=== PATIENT | female | born 1955 | race Caucasian/White ===

== ENCOUNTER 2017-06-13 08:08 | Emergency (ER) | payer BC, OTHER ==
[~2017-06-13] VITALS: Ht 154.9 cm; Wt 52.0 kg
[~2017-06-13 08:08] MED LIST: Z.0.NO CURRENT MEDS
[2017-06-13 08:10] VITALS: BP 158/77; PULSE 84; RESP 16; TEMP 98.1; O2SAT 98
[2017-06-13] MEDS ORDERED: VITA100021 SL (08:31)
[2017-06-13] MEDS ORDERED: FISH1000 PO (08:31)
[2017-06-13] MEDS ORDERED: VITA1000 PO (08:31)
[2017-06-13] MEDS ORDERED: MELA5TAB15 PO (08:32)
--- NOTE | 2017-06-13 08:35 | PD ---
HPI Chief Complaint: Abdominal Pain Time Seen by Provider: 08:35 Travel History International Travel<30 days: No Contact w/Intl Traveler<30days: No Traveled to known affect area: No History of Present Illness HPI 62-year-old female came to the emergency room with history of left flank pain that started since last night. Patient says it woke her up from her sleep and since then she has been very nauseous and constant vomiting. Patient has had this pain on and off for past couple months but last night was the worst. She has also been diagnosed with some bladder cancer and had a cystoscopy and procedure done by Dr. De Dios 6 weeks ago. Patient says she had a CAT scan done just prior to the procedure and she was told there was no stone or any other abnormalities. Currently she is not vomiting. Vital signs are stable. She appears very uncomfortable. Her is here with her. PFSH Past Medical History Narrative Medical List of her past medical, surgical, social and family history was reviewed from the nursing note. Cancer: Yes (BLADDER) Diabetes: No Diminished Hearing: No Glaucoma: No Hepatitis: No Hiatal Hernia: No Hypertension: No Thyroid Disease: No Tetanus Vaccination: > 5 Years Influenza Vaccination: No ?: Not Menopausal: Yes : 2 Para: 2 Tubal Ligation: Yes Past Surgical History Abdominal Surgery: Yes (BLADDER CA) Section: Yes Gynecologic Surgery: Yes ( X 2; ABLATION) Pacemaker: No Other Surgery: Yes Social History Alcohol Use: Yes (SOCIALLY) Tobacco Use: No Substance Use: No Allergies-Medications (Allergen,Severity, Reaction): Coded Allergies: house dust (Unverified Allergy, Unknown, 06/14/17) mold (Unverified Allergy, Unknown, 06/14/17) Comments List of her allergies reviewed from the nursing note. Reported Meds & Prescriptions Reported Meds & Active Scripts Active Flomax (Tamsulosin HCl) 0.4 Mg Cap 0.4 Mg PO HS Zofran Odt (Ondansetron Odt) 4 Mg Tab 4 Mg SL Q6HR PRN Lortab (Hydrocodone-Acetaminophen) 5-325 Mg Tab 1 Tab PO Q6H PRN Reported Melatonin 5 Mg Tab 3 Mg PO HS Fish Oil ([place]-3 Fatty Acids) 1,000 Mg Cap 1 Cap PO DAILY Vitamin D-1000 (Cholecalciferol) 1,000 Unit Tab 1,000 Units PO DAILY Vitamin D-1000 (Cholecalciferol) 1,000 Unit Tab 1,000 Units PO DAILY Vitamin B-12 (Cyanocobalamin) 1,000 Mcg Subl 1,000 Mcg SL DAILY Narrative Medication List of her home medications reviewed from the nursing note. Review of Systems Except as stated in HPI: all other systems reviewed are Neg Physical Exam Narrative GENERAL: Awake, alert, moderate distress, anxious SKIN: Focused skin assessment warm/dry. HEAD: Atraumatic. Normocephalic. EYES: Pupils equal and round. No scleral icterus. No injection or drainage. ENT: No nasal bleeding or discharge. Mucous membranes pink and moist. NECK: Trachea midline. No JVD. CARDIOVASCULAR: Regular rate and rhythm. No murmur appreciated. RESPIRATORY: No accessory muscle use. Clear to auscultation. Breath sounds equal bilaterally. GASTROINTESTINAL: Abdomen soft, non-tender, nondistended. Hepatic and splenic margins not palpable. MUSCULOSKELETAL: No obvious deformities. No clubbing. No cyanosis. No edema. NEUROLOGICAL: Awake and alert. No obvious cranial nerve deficits. Motor grossly within normal limits. Normal speech. PSYCHIATRIC: Appropriate mood and affect; insight and judgment normal. Data Data Last Documented VS Vital Signs Date Time Temp Pulse Resp B/P Pulse Ox O2 Delivery O2 Flow Rate FiO2 06/13/17 09:30 18 06/13/17 09:26 99 Nasal Cannula 2 06/13/17 08:10 98.1 84 158/77 Orders Complete Blood Count With Diff (06/13/17 08:41) Comprehensive Metabolic Panel (06/13/17 08:41) Urinalysis - C+S If Indicated (06/13/17 08:41) Ct Abd/Pel W/O Iv Contrast (06/13/17 08:41) Iv Access Insert/Monitor (06/13/17 08:41) Ecg Monitoring (06/13/17 08:41) Oximetry (06/13/17 08:41) Hydromorphone Pf Inj (Dilaudid Pf Inj) (06/13/17 08:45) Ondansetron Inj (Zofran Inj) (06/13/17 08:45) Sodium Chlor 0.9% 1000 Ml Inj (Ns 1000 M (06/13/17 08:41) Sodium Chloride 0.9% Flush (Ns Flush) (06/13/17 08:45) Labs Laboratory Tests Test 06/13/17 06/13/17 09:03 09:55 White Blood Count 10.8 TH/MM3 Red Blood Count 4.65 MIL/MM3 Hemoglobin 14.0 GM/DL Hematocrit 42.0 % Mean Corpuscular Volume 90.3 FL Mean Corpuscular Hemoglobin 30.1 PG Mean Corpuscular Hemoglobin 33.3 % Concent Red Cell Distribution Width 13.1 % Platelet Count 268 TH/MM3 Mean Platelet Volume 8.0 FL Neutrophils (%) (Auto) 89.2 % Lymphocytes (%) (Auto) 6.5 % Monocytes (%) (Auto) 4.1 % Eosinophils (%) (Auto) 0.0 % Basophils (%) (Auto) 0.2 % Neutrophils # (Auto) 9.7 TH/MM3 Lymphocytes # (Auto) 0.7 TH/MM3 Monocytes # (Auto) 0.4 TH/MM3 Eosinophils # (Auto) 0.0 TH/MM3 Basophils # (Auto) 0.0 TH/MM3 CBC Comment DIFF FINAL Differential Comment Sodium Level 138 MEQ/L Potassium Level 3.8 MEQ/L Chloride Level 106 MEQ/L Carbon Dioxide Level 25.8 MEQ/L Anion Gap 6 MEQ/L Blood Urea Nitrogen 17 MG/DL Creatinine 1.00 MG/DL Estimat Glomerular Filtration 56 ML/MIN Rate Random Glucose 130 MG/DL Calcium Level 8.7 MG/DL Total Bilirubin 0.5 MG/DL Aspartate Amino Transf 21 U/L (AST/SGOT) Alanine Aminotransferase 28 U/L (ALT/SGPT) Alkaline Phosphatase 95 U/L Total Protein 8.0 GM/DL Albumin 4.1 GM/DL Urine Color LIGHT-YELLOW Urine Turbidity CLEAR Urine pH 7.5 Urine Specific [place] 1.009 Urine Protein NEG mg/dL Urine Glucose (UA) NEG mg/dL Urine Ketones 10 mg/dL Urine Occult Blood MOD Urine Nitrite NEG Urine Bilirubin NEG Urine Urobilinogen LESS THAN 2.0 MG/DL Urine Leukocyte Esterase NEG Urine RBC 11 /hpf Urine WBC LESS THAN 1 /hpf Microscopic Urinalysis Comment CULT NOT INDICATED MDM Medical Decision Making Medical Screen Exam Complete: Yes Emergency Medical Condition: Yes Medical Record Reviewed: Yes Differential Diagnosis Ureteral colic, ureteral calculi, pyelonephritis Narrative Course 11:17 AM blood test results of back and within acceptable limits. UA shows some rbc's but no infection. CT scan just a few of a 4 x 3 mm stone with mild hydronephrosis on the left side. Patient was given 1 mg of IV Dilaudid and she has been pain-free since then. I have put a call out for Dr. De Dios to discuss about the stone as well as the right hydronephrosis. However I have not heard back from him yet. At this point I'm comfortable discharging the patient home and I have asked her to call Dr. De Dios's office to make an appointment as soon as possible. She'll be discharged home with Lortab prescription and urine strainer. Patient is comfortable with that plan. Procedures EKG Prior to Arrival: No Diagnosis Primary Impression: Renal colic on left side Additional Impression: Hydroureter Referrals: Dylan De Dios MD 2 days Additional Instructions: Please follow-up with your urologist Dr. De Dios regarding this stone as well as the obstruction on the right side. Take the medications as per the prescription direction. Return to the ER if the condition worsens or any other new concerns. Not drive while on pain medication since they will make you groggy. Med/Other Pt SpecificInfo: Prescription(s) given Scripts Tamsulosin (Flomax)0.4 Mg Cap0.4 Mg PO HS #15 CAP Ref 0 Prov:Kenny Gavin MD 06/13/17 Ondansetron Odt (Zofran Odt)4 Mg Tab4 Mg SL Q6HR PRN (Nausea/Vomiting) #15 TAB Ref 0 Prov:Kenny Gavin MD 06/13/17 Hydrocodone-Acetaminophen (Lortab)5-325 Mg Tab1 Tab PO Q6H PRN (PAIN) #20 TAB Ref 0 Prov:Kenny Gavin MD 06/13/17 Disposition: DISCHARGE HOME Condition: Stable Kenny Gavin MD Jun 13, 2017 08:35
[2017-06-13] MEDS ORDERED: SODIUM CHLOR 0.9% 1000 ML INJ 1,000 ML IV SCH (08:41)
[2017-06-13] MEDS ORDERED: HYDROmorphone HCL PF 2 MG/ML VIAL IVS ONE (08:45)
[2017-06-13] MEDS ORDERED: SODIUM CHLORIDE 0.9% FLUSH 10 ML FLUSH IV FLUSH PRN (08:45)
[2017-06-13] MEDS ORDERED: ONDANSETRON HCL 4 MG/2 ML VIAL IVP ONE (08:45)
[2017-06-13 09:16] LABS: AUTOMATED NEUTROPHIL # 9.7 TH/MM3 (1.8-7.7); BASOPHIL % 0.2 % (0.0-2.0); HEMO FLAGS DIFF FINAL; LYMPH % 6.5 % (9.0-44.0); LYMPHOCYTE # 0.7 TH/MM3 (1.0-4.8); MEAN CELL VOLUME 90.3 FL (80.0-100.0); MEAN CORPUSCULAR HEMOGLOBIN 30.1 PG (27.0-34.0); MEAN CORPUSCULAR HGB CONC 33.3 % (32.0-36.0); MONO % 4.1 % (0.0-8.0); NEUT % 89.2 % (16.0-70.0); PLATELET COUNT 268 TH/MM3 (150-450); RED BLOOD COUNT 4.65 MIL/MM3 (4.00-5.30); RED CELL DISTRIBUTION WIDTH 13.1 % (11.6-17.2); WHITE BLOOD COUNT 10.8 TH/MM3 (4.0-11.0)
[2017-06-13 09:26] VITALS: RESP 18; O2SAT 99
[2017-06-13 09:30] VITALS: RESP 18
[2017-06-13 09:41] LABS: ANION GAP 6 MEQ/L (5-15); AST (GOT) 21 U/L (15-37); BICARBONATE 25.8 MEQ/L (21.0-32.0); BLOOD UREA NITROGEN 17 MG/DL (7-18); CHLORIDE 106 MEQ/L (98-107); GLOMERULAR FILTRATION RATE 56 ML/MIN (>89); POTASSIUM 3.8 MEQ/L (3.5-5.1); SODIUM (NA) 138 MEQ/L (136-145)
[2017-06-13 09:42] LABS: ALT (GPT) 28 U/L (10-53)
--- NOTE | 2017-06-13 09:42 | RADRPT ---
EXAM DATE/TIME: 06/13/2017 08:53 [facility] COMPARISON: No previous studies available for comparison. INDICATIONS : Right flank pain with nausea and vomiting. ORAL CONTRAST: No oral contrast ingested. RADIATION DOSE: 5.08 CTDIvol (mGy) MEDICAL HISTORY : Carcinoma, bladder. SURGICAL HISTORY : section. Tubal ligation.ablation, surgery for bladder cancer ENCOUNTER: Initial ACUITY: 1 day PAIN SCALE: 8/10 LOCATION: Right flank TECHNIQUE: Volumetric scanning of the abdomen and pelvis was performed. Using automated exposure control and ad justment of the mA and/or kV according to patient size, radiation dose was kept as low as reasonably achievable to obtain optimal diagnostic quality images. DICOM format image data is available electro nically for review and comparison. FINDINGS: LOWER LUNGS: The visualized lower lungs are clear. LIVER: Homogeneous density without lesion. There is no dilation of the biliary tree. No calcified gallston es. SPLEEN: Normal size without lesion. PANCREAS: Within normal limits. KIDNEYS: There is mild left hydronephrosis and distention of the extrarenal pelvis caused by a 4 x 3 mm stone in the left proximal ureter near the ureteropelvic junction. There is mild stranding of the adjacent perirenal fat. There is right hydronephrosis and hydroureter. A cause is not identified. There is a p unctate calcification in the right adnexal region (image 98) but it does not appear to correlate with the ureter. No mass is visualized. ADRENAL GLANDS: Within normal limits. VASCULAR: There is no aortic aneurysm. There is mild atherosclerotic disease. BOWEL/MESENTERY: The stomach, small bowel, and colon demonstrate no acute abnormality. There is no free intraperitone al air or fluid. There is sigmoid diverticulosis. Groundglass attenuation is present within the jejun al mesentery. A small hiatal hernia is present. ABDOMINAL WALL: Within normal limits. RETROPERITONEUM: There is no lymphadenopathy. BLADDER: No wall thickening or mass. REPRODUCTIVE: Within normal limits. INGUINAL: There is no lymphadenopathy or hernia. MUSCULOSKELETAL: There are mild degenerative changes of the lumbar spine. CONCLUSION: 1. There is mild left hydronephrosis caused by a 4 x 3 mm stone in the left proximal ureter at the ur eteropelvic junction. There is mild associated surrounding inflammation. 2. There is right hydronephrosis and proximal hydroureter from uncertain etiology. No right renal sto ne is seen. 3. Nonacute findings include small hiatal hernia and mild atherosclerotic disease. Jordan Miller MD on June 13, 2017 at 9:36 Board Certified Radiologist. This report was verified electronically.
[2017-06-13 09:45] LABS: ALKALINE PHOSPHATASE 95 U/L (45-117); TOTAL BILIRUBIN ADULT 0.5 MG/DL (0.2-1.0)
[2017-06-13 10:25] LABS: BLOOD, URINE MOD (NEG); GLUCOSE,URINE NEG (NEG); KETONE, URINE 10 mg/dL (NEG); NITRITE,URINE NEG (NEG); PH, URINE 7.5 (5.0-8.5); URINE COLOR LIGHT-YELLOW (YELLW/STRAW)
[2017-06-13 10:27] LABS: COMMENT (UR) CULT NOT INDICATED; CULTURE IF INDICATED CULT NOT INDICATED
[2017-06-13] MEDS ORDERED: ZOFR4TAB3 SL (11:21)
[2017-06-13] MEDS ORDERED: HYDR-3533 PO (11:21)
[2017-06-13] MEDS ORDERED: TAMS5CAP PO (11:21)
== END 2017-06-13 11:57 | disposition home or self-care (01) ==
LOC: NEPC 08:08
DX: N20.1 Calculus of ureter (principal); N13.4 Hydroureter; R11.2 Nausea with vomiting, unspecified; C67.9 Malignant neoplasm of bladder, unspecified; Z98.890 Other specified postprocedural states
CPT/HCPCS: 74176; 80053; 81001; 85025; 96361; 96374; 96375; 99285; J1170; J2405; J7030